=== PATIENT | male | born 1945 | race Caucasian/White ===

== ENCOUNTER 2024-10-18 06:29 | Day surgery (SDC) | payer OTHER, SELFPAY ==
[2024-10-18 09:12] LABS: Glucose - Point of Care 263 mg/dl (70-99)
== END 2024-10-18 11:38 | disposition home or self-care (01) ==
LOC: GI 06:29
PROVIDERS: ATTENDING PHYSICIAN Surgery
DX: R19.7 Diarrhea, unspecified (principal); K64.8 Other hemorrhoids; Q43.8 Other specified congenital malformations of intestine; D12.1 Benign neoplasm of appendix; D12.2 Benign neoplasm of ascending colon; D12.4 Benign neoplasm of descending colon; K63.5 Polyp of colon
CPT/HCPCS: 45385; 45380; 88305; 82962

== ENCOUNTER 2024-12-22 06:07 | Day surgery (SDC) | payer OTHER, SELFPAY ==
[2024-12-22] VITALS (8 sets, daily range): BP systolic 158–185; BP diastolic 59–81; BMI 21.1
[2024-12-22 10:38] LABS: Glucose - Point of Care 246 mg/dl (70-99)
[2024-12-22 12:31] LABS: Glucose - Point of Care 227 mg/dl (70-99)
[2024-12-22 13:59] LABS: Glucose - Point of Care 192 mg/dl (70-99)
== END 2024-12-22 13:57 | disposition home or self-care (01) ==
LOC: GI 06:07
PROVIDERS: ATTENDING PHYSICIAN Internal Medicine Gastroenterology
DX: K64.0 First degree hemorrhoids (principal); D12.6 Benign neoplasm of colon, unspecified; K63.5 Polyp of colon; D12.0 Benign neoplasm of cecum; D12.2 Benign neoplasm of ascending colon; D12.3 Benign neoplasm of transverse colon; D12.5 Benign neoplasm of sigmoid colon; Z98.890 Other specified postprocedural states
CPT/HCPCS: 45385; 45381; 88305; 82962

== ENCOUNTER → 2025-03-20 12:34 | Outpatient (REF) | payer OTHER, SELFPAY ==
[2025-03-20 13:52] LABS: Blood Urea Nitrogen 27 mg/dl (9-20)
== END ==
LOC: REG 12:34
PROVIDERS: ATTENDING PHYSICIAN Internal Medicine Gastroenterology; FAMILY PHYSICIAN Family Medicine
DX: R63.4 Abnormal weight loss (principal)
CPT/HCPCS: 36415; 82565; 84520

== ENCOUNTER → 2025-03-24 10:54 | Outpatient (REF) | payer OTHER, SELFPAY | LOC: RAD 10:54 | PROVIDERS: ATTENDING PHYSICIAN Internal Medicine Gastroenterology; FAMILY PHYSICIAN Family Medicine | DX: R63.4 Abnormal weight loss (principal) | CPT/HCPCS: 74178; Q9967 ==

== ENCOUNTER 2025-06-15 06:13 | Day surgery (SDC) | payer OTHER, SELFPAY ==
[2025-06-15 07:00] VITALS: BMI 22.8
[2025-06-15 07:05] VITALS: BP 162/70
[2025-06-15 07:14] VITALS: BMI 22.8
[2025-06-15 07:40] LABS: Glucose - Point of Care 273 mg/dl (70-99)
[2025-06-15 09:09] VITALS: BP 148/60
[2025-06-15 09:15] VITALS: BP 148/57
[2025-06-15 09:30] VITALS: BP 166/52
== END 2025-06-15 09:40 | disposition home or self-care (01) ==
LOC: GI 06:13
PROVIDERS: ATTENDING PHYSICIAN Internal Medicine Gastroenterology
DX: Z12.11 Encounter for screening for malignant neoplasm of colon (principal); D12.2 Benign neoplasm of ascending colon; D12.3 Benign neoplasm of transverse colon; D12.4 Benign neoplasm of descending colon; D12.5 Benign neoplasm of sigmoid colon; K64.0 First degree hemorrhoids; Z86.0101 Personal history of adenomatous and serrated colon polyps; F17.210 Nicotine dependence, cigarettes, uncomplicated
CPT/HCPCS: 45390; 45385; 82962; 88305